=== PATIENT | female | born 1985 | race African-American/Black ===

== ENCOUNTER → 2016-06-27 16:34 | Outpatient (CLI) | payer MEDICARE, MEDICAID ==
[2012-10-18 07:29] VITALS: BMI 45.7
[~2016-06-27 16:34] MED LIST: METHYLDOPA500 MG PO; PRENATAL COMPLE1 TAB PO; [UNRECOGNIZED DRUG - REMARK] PO
[2016-06-27 18:03] LABS: APPEARANCE CLOUDY (CLEAR); BACTERIA MODERATE /hpf (NONE SEEN); BILIRUBIN NEGATIVE (NEGATIVE); COLOR YELLOW (YELLOW); EPITHELIAL CELLS 25-50 /hpf (0-5); GLUCOSE NEGATIVE (NEGATIVE); KETONE MODERATE mg/dL (NEGATIVE); LEUKOCYTE ESTERASE 1+ (NEGATIVE); MUCUS <1+ /lpf (NONE SEEN); NITRITE NEGATIVE (NEGATIVE); PROTEIN NEGATIVE (NEGATIVE); RED CELLS - URINE OCC /hpf (0-5); UROBILINOGEN NORMAL (NORMAL)
== END | disposition home or self-care (01) ==
LOC: D.LDO 16:34
PROVIDERS: Obstetrics & Gynecology
DX: Z34.83 Encounter for supervision of other normal pregnancy, third trimester (principal); Z3A.30 30 weeks gestation of pregnancy; R10.30 Lower abdominal pain, unspecified

== ENCOUNTER 2018-05-23 13:05 | Emergency (ER) | payer MEDICARE ==
[~2018-05-23] VITALS: Ht 172.7 cm; Wt 150.0 kg
[2018-05-23 13:07] VITALS: Ht 172.7 cm; Wt 150.0 kg
[2018-05-23 14:01] LABS: HCG SERUM POSITIVE (NEGATIVE)
[2018-05-23 16:26] LABS: UDS - AMPHET NEGATIVE QUAL (NEGATIVE); UDS - BARB NEGATIVE QUAL (NEGATIVE); UDS - BENZO NEGATIVE QUAL (NEGATIVE); UDS - COCAINE NEGATIVE QUAL (NEGATIVE); UDS - OPIATE NEGATIVE QUAL (NEGATIVE); UDS - PCP NEGATIVE QUAL (NEGATIVE); UDS - THC POSITIVE QUAL (NEGATIVE)
[2018-05-23 16:42] LABS: APPEARANCE CLEAR (CLEAR); BILIRUBIN NEGATIVE (NEGATIVE); COLOR YELLOW (YELLOW); GLUCOSE NEGATIVE (NEGATIVE); KETONE NEGATIVE (NEGATIVE); NITRITE NEGATIVE (NEGATIVE); PROTEIN NEGATIVE (NEGATIVE); UROBILINOGEN NORMAL (NORMAL)
[2018-05-23 16:44] LABS: RED CELLS - URINE 0-5 /hpf (0-5)
[2018-05-23 16:45] LABS: BACTERIA MODERATE /hpf (NONE SEEN)
[2018-05-23 16:46] LABS: MUCUS <1+ /lpf (NONE SEEN); YEAST <1+ /hpf (NONE SEEN)
[2018-05-23 16:59] VITALS: BP 183/95
== END 2018-05-23 17:00 | disposition home or self-care (01) ==
LOC: D.ER 13:05
PROVIDERS: Family Medicine
DX: O26.891 Other specified pregnancy related conditions, first trimester (principal); Z3A.01 Less than 8 weeks gestation of pregnancy; S09.90XA Unspecified injury of head, initial encounter; Y04.2XXA Assault by strike against or bumped into by another person, initial encounter; Y93.89 Activity, other specified; Y92.019 Unspecified place in single-family (private) house as the place of occurrence of the external cause; O98.311 Other infections with a predominantly sexual mode of transmission complicating pregnancy, first trimester; A59.01 Trichomonal vulvovaginitis; O20.9 Hemorrhage in early pregnancy, unspecified

== ENCOUNTER 2018-10-13 18:26 | Emergency (ER) | payer MEDICARE ==
[~2018-10-13] VITALS: Ht 172.7 cm; Wt 143.2 kg
[2018-10-13 18:35] VITALS: Ht 172.7 cm; Wt 143.2 kg
[2018-10-13] MEDS ORDERED: NORMODYNE / TR300 MG PO (18:40)
[2018-10-13 19:09] LABS: BASOPHILS 0.2 % (0-2); EOSINOPHILS 1.6 % (0-7); HEMATOCRIT 32.1 % (36.0-48.0); HEMOGLOBIN 10.9 g/dL (12-16); IMMATURE GRANULOCYTES 0.4 % (0-5); LYMPHOCYTES 23.6 % (15-50); MCH 29.4 pg (26.0-34.0); MCV 86.5 fL (80.0-100.0); MEAN PLATELET VOLUME 11.1 fL (7.4-10.4); MONOCYTES 7.1 % (2-11); NEUTROPHILS 67.1 % (40-80); PLATELET COUNT 321 10x3/uL (130-400); RBC 3.71 10x6/uL (4.00-5.40); RDW 13.3 % (11.5-14.5); WBC 10.8 10x3/uL (4.8-10.8)
[2018-10-13 19:22] LABS: ALBUMIN 2.9 g/dL (3.4-5.0); ANION GAP 12.5 mmol/L (8-16); BILIRUBIN - TOTAL 0.19 mg/dL (0.2-1.3); CALCIUM 8.6 mg/dL (8.5-10.1); CARBON DIOXIDE 26.5 mmol/L (21.0-32.0); CREATININE - SERUM 1.1 mg/dL (0.6-1.3)
[2018-10-13] MEDS ORDERED: CATAPRES0.2 MG PO (20:26)
[2018-10-13 21:31] VITALS: BP 215/133
== END 2018-10-13 20:45 | disposition home or self-care (01) ==
LOC: D.ER 18:26
PROVIDERS: Family Medicine
DX: S31.115D Laceration without foreign body of abdominal wall, periumbilic region without penetration into peritoneal cavity, subsequent encounter (principal); Z48.02 Encounter for removal of sutures